=== PATIENT | male | born 1970 | race Caucasian/White ===

== ENCOUNTER 2020-04-19 11:58 | Observation (INO) | payer OTHER, SELFPAY ==
[2020-04-19] VITALS (19 sets, daily range): BP systolic 138–195; BP diastolic 96–132; PULSE 56–88; RESP 16–18; TEMP 36.6–36.9; O2SAT 96–100; BMI 27.1
--- NOTE | 2020-04-19 12:08 | XR_ITS ---
WS: [id number] Portable AP upright chest, 04/19/2020 Clinical Data: chest pain, SOB Comparison: None. Findings: No nodules, masses or effusions are seen. The heart is slightly enlarged. The pulmonary vas cularity is not increased. No pneumonia or pneumothorax is seen. Monitor leads are on the chest wall. XR/XR chest 1V portable [id number] Impression: Cardiomegaly.
--- NOTE | 2020-04-19 12:08 | ECG_ITS ---
Measurements Intervals [place] Rate: 87 P: 17 TX: 138 QRS: 16 QRSD: 82 T: 37 QT: 384 QTc: 462 SINUS RHYTHM No previous ECG available for comparison Electronically Signed On 04-19-2020 20:55:46 CDT by Denisse Asencio M.D. [id number]
[2020-04-19 13:41] LABS: Basophils % 0.4 %; Eosinophils % 0.4 %; Hemoglobin 15.6 g/dL (11.7-16.6); Lymphocytes # 2.6 10^3/uL (0.8-4.8); Lymphocytes % 24.6 %; Mean Corpuscular HGB Conc 33.2 g/dL (30.0-36.0); Mean Corpuscular Hemoglobin 28.7 pg (28.0-34.0); Mean Corpuscular Volume 86.4 fL (80-94); Mean Platelet Volume 10.7 fL (7.4-10.4); Monocytes # 0.6 10^3/uL (0.2-0.9); Monocytes % 5.8 %; Neutrophils # 7.4 10^3/uL (1.8-7.7); Neutrophils % 68.6 %; Nucleated Red Blood Cells % 0 %; Platelet Count 229 10^3/cmm (130-400); Red Blood Count 5.44 10^6/uL (4.1-5.3); Red Cell Distribution Width 12.3 % (12.1-15.1); White Blood Count 10.7 10^3/uL (4.0-10.0)
--- NOTE | 2020-04-19 13:49 | W.ED.CHESTPA ---
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 He is not on any antiepileptic medications. He started having some retrosternal chest pain last night that got worse this morning. He then went to the clinic where he was given 324 mg of ASA and nitro. An ambulance was then called. While in the ambulance he had a generalized tonic clonic seizure that was aborted with versed 5 mg. CHest pain radiates to his left arm. No nausea or vomiting, no diaphoresis, no dizziness. Patient usually has an aura before his seizures Patient denies drug use, denies smoking or drinking. MD complaint: chest pain Onset (ago): day(s) (1) Associated symptoms: Deny abdominal pain, dyspnea, fever(s), nausea, palpitations or vomiting Review of Systems General: Reports: 10 or more systems reviewed and unremarkable except in HPI and below Const: Denies: fever(s), chills or body aches Eyes: Denies: change in vision or blurry vision ENMT: Denies: throat pain, enlarged tonsils, odynophagia, hoarseness, mouth pain or swelling of lips/tongue Card: Reports: chest pain and dyspnea on exertion; Denies: palpitations, irregular heart rhythm, edema or swelling of feet/ankles Resp: Denies: dyspnea, productive cough or non-productive cough GI: Denies: abdominal pain, nausea or vomiting : Denies: flank pain, dysuria, urinary frequency, urinary urgency or urinary hesitancy Musc: Denies: neck pain, back pain or extremity swelling Skin/Breast: Denies: rash, pruritus or erythema Neuro: Reports: seizure-like activity; Denies: headache(s), numbness in extremities or weakness in extremities Endo: Denies: polyuria, polydipsia or tired all the time PFS ED PFSH: Medical History (Updated 04/19/20 @ 21:15 by [place] [facility] [place] HTN (hypertension) Surgical History (Updated 04/19/20 @ 18:22 by Brandy Marcus MD) No history of previous surgery Family History (Updated 04/19/20 @ 18:23 by Brandy Marcus MD) Denies family history of Seizure disorder Social History (Updated 04/19/20 @ 18:23 by Brandy Marcus MD) Smoking and tobacco status: never smoked Alcohol intake: never Substance/Drug Use: never Household members: significant other and children Marital status: Current occupation: manual laborer wrecking and salvaging Physical Exam Const: COMMON NORMALS: no acute distress, average body habitus, patient oriented x3, no limitations, healthy appearing, alert and well nourished HENMT: COMMON NORMALS: normocephalic, atraumatic and moist oral mucous membranes HEAD & SCALP: normocephalic and atraumatic Eye: COMMON NORMALS: Equal, round and reactive pupils present, EOMs intact bilaterally, conjunctivae normal and no scleral icterus CONJUNCTIVA: Yes conjunctivae normal PUPIL: Yes Equal, round and reactive pupils present Neck/C-Spine: COMMON NORMALS: full ROM, supple, no meningeal signs, no JVD and No carotid bruits Chest: COMMONS NORMALS: normal inspection of the chest and normal palpation of entire chest wall Resp: COMMON NORMALS: normal respiratory effort, No retractions, No use of accessory muscles, clear to auscultation bilaterally and percussion normal AUSCULTATION: clear to auscultation bilaterally PERCUSSION: percussion normal Cardio: COMMON NORMALS: no JVD, regular rate, regular rhythm, S1 normal heart sound present, S2 normal heart sound present, No gallops present (Cardio), No clicks present (Cardio), No murmurs present (Cardio), No rub (Cardio) and Peripheral pulses 2+ throughout RATE: regular rate RHYTHM: regular rhythm HEART SOUNDS: S1 normal heart sound present and S2 normal heart sound present PERIPHERAL PULSES: Peripheral pulses 2+ throughout GI: COMMON NORMALS: Normal to inspection, nondistended, normoactive bowel sounds present, Soft to palpation, non-tender, No hepatosplenomegaly present, no masses and no bruits PALPATION: Yes Soft to palpation and Yes No hepatosplenomegaly present : COMMON NORMALS: Yes no CVA tenderness BLADDER/KIDNEY EXAM: Yes no CVA tenderness Back/Pelvis: COMMON NORMALS: no CVA tenderness Extremity: COMMON NORMALS: normal to inspection, full ROM, capillary refill normal, no calf tenderness and no pedal edema Neuro: COMMON NORMALS: patient oriented x3 SENSORIUM/ORIENTATION: Yes alert MENINGEAL SIGNS: Yes no meningeal signs Skin: COMMON NORMALS: no rashes or lesions noted, no wounds, turgor normal, no jaundice, no petechiae and no mottling GENERAL SKIN EXAM: no rashes or lesions noted and turgor normal Course ED course: During his emergency department stay, I discussed with his who came in to see him. She explained to me that the patient stopped taking his antiepileptic because he could not afford the medication. She also states that he is hypertensive but refuses to take medication. She also states that they are going through a lot of social issues between them and their marriage is not in a good place, she thinks the stress of that may be contributing to why he had seizures. Reevaluation(s): Reevaluation #1: Patient had a tonic-clonic seizure that started on the right side and became secondarily generalized. Witnessed by nursing staff as well as 1 of the hospitalists who happened to be in the ED at the time. I was in a different patient's room at the time. Seizure lasted about 1 minute and spontaneously aborted. Time: 12:55 Consultations: Consultation #1: Discussed the patient with Dr. Couch, neurologist. Since the patient has been given 1 g of intravenous Keppra and evaluation is unremarkable she does not think the patient needs further work-up. However since the patient is still lethargic and possibly postictal it is reasonable to admit the patient overnight under the hospitalist service for observation. Patient should be discharged home on 750 mg twice daily of oral Keppra Time: 16:30 Consultation #2: Discussed the patient with Dr. Hannah chiu, hospitalist. She kindly accepted the patient to her service Time: 16:40 Vital Signs: Vital signs: Vital Signs Temperature 97.8 F 04/19/20 20:00 Pulse Rate 56 L 04/19/20 20:00 Respiratory Rate 17 04/19/20 20:00 Blood Pressure 170/96 04/19/20 20:00 Pulse Oximetry 96 04/19/20 20:00 MDM - Chest Pain MDM Narrative: Medical decision making narrative: 50-year-old male with a history of posttraumatic seizures who presented to his primary care provider's office for complaints of chest pain. He had a couple of seizures today and was given a loading dose of intravenous Keppra. After that he did not have any other seizures. He remained postictal for the stay in the emergency department and he was therefore admitted for an overnight stay for observation. Evaluation in the emergency department was unremarkable. Medical Records: Attestation: I reviewed the patient's medical records. Lab Data: Attestation: I reviewed the patient's lab results. Labs: Lab Results 04/19/20 04/19/20 04/19/20 Range/Units 13:34 13:34 13:34 WBC 10.7 H (4.0-10.0) 10^3/ uL RBC 5.44 H (4.1-5.3) 10^6/u L Hgb 15.6 (11.7-16.6) g/dL Hct 47.0 (42.0-52.0) % MCV 86.4 (80-94) fL MCH 28.7 (28.0-34.0) pg MCHC 33.2 (30.0-36.0) g/dL RDW 12.3 (12.1-15.1) % Plt Count 229 (130-400) 10^3/c mm MPV 10.7 H (7.4-10.4) fL Neut % (Auto) 68.6 % Lymph % (Auto) 24.6 % [place] % (Auto) 5.8 % Eos % (Auto) 0.4 % Baso % (Auto) 0.4 % Neut # (Auto) 7.4 (1.8-7.7) 10^3/u L Lymph # (Auto) 2.6 (0.8-4.8) 10^3/u L [place] # (Auto) 0.6 (0.2-0.9) 10^3/u L Eos # (Auto) 0.0 (0.0-0.8) 10^3/u L Baso # (Auto) 0.0 (0.0-0.1) 10^3/u L Nucleated RBC % (a uto) 0 % Nucleated RBCs # 0.0 /100WBC D-Dimer <= 0.27 (0-0.59) ug/mIFE U Sodium 140 (136-145) mmol/L Potassium 4.0 (3.5-5.1) mmol/L Chloride 105 (98-107) mmol/L Carbon Dioxide 23 (22-29) mmol/L Anion Gap 16.0 (5-19) BUN 13 (6-20) mg/dL Creatinine 1.4 H (0.7-1.2) mg/dL GFR Calculation 53.4 L (90-130) mL/min Glucose 99 (65-115) mg/dL Calculated Osmolal ity 286 (285-295) mOsm/k g Calcium 8.6 (8.5-10.5) mg/dL Total Bilirubin 0.3 (0.15-1.2) mg/dL AST 15 (0-40) U/L ALT 18 (0-41) U/L Alkaline Phosphata se 101 (40-130) IU/L Troponin T Baselin e (0-15) ng/L Troponin T 120 Min [place] (0-15) ng/L Delta Troponin T (0-10) ABS# Total Protein 6.4 L (6.6-8.7) g/dL Albumin 4.0 (3.5-5.2) g/dL Globulin 2.4 (1.3-4.6) g/dL Urine Color (Yellow) Urine Appearance (CLEAR) Urine pH (5-7) Ur Specific Gravit y (1.005-1.030) Urine Protein (Negative) Urine Glucose (UA) (Normal) Urine Ketones (Negative) Urine Blood (Negative) Urine Nitrate (Negative) Urine Bilirubin (NEGATIVE) Urine Urobilinogen (Negative) mg/dL Ur Leukocyte Danielle ase (Negative) Urine RBC (0-2) /hpf Urine WBC (0-5) /hpf Ur Squamous Epith Cells (0-5) Urine Bacteria (NONE) Urine Mucus Urine Opiates Scre en (Negative) ng/mL Ur Barbiturates Sc reen (Negative) ng/mL Ur Phencyclidine S crn (Negative) ng/mL Ur Amphetamines Sc reen (Negative) ng/mL U Benzodiazepines Scrn (Negative) ng/mL Urine Cocaine Scre en (Negative) ng/mL U Marijuana (THC) Screen (Negative) ng/mL Ethyl Alcohol < 10 (0-10) mg/dL 04/19/20 04/19/20 04/19/20 Range/Units 13:34 15:47 16:00 WBC (4.0-10.0) 10^3/ uL RBC (4.1-5.3) 10^6/u L Hgb (11.7-16.6) g/dL Hct (42.0-52.0) % MCV (80-94) fL MCH (28.0-34.0) pg MCHC (30.0-36.0) g/dL RDW (12.1-15.1) % Plt Count (130-400) 10^3/c mm MPV (7.4-10.4) fL Neut % (Auto) % Lymph % (Auto) % [place] % (Auto) % Eos % (Auto) % Baso % (Auto) % Neut # (Auto) (1.8-7.7) 10^3/u L Lymph # (Auto) (0.8-4.8) 10^3/u L [place] # (Auto) (0.2-0.9) 10^3/u L Eos # (Auto) (0.0-0.8) 10^3/u L Baso # (Auto) (0.0-0.1) 10^3/u L Nucleated RBC % (a uto) % Nucleated RBCs # /100WBC D-Dimer (0-0.59) ug/mIFE U Sodium (136-145) mmol/L Potassium (3.5-5.1) mmol/L Chloride (98-107) mmol/L Carbon Dioxide (22-29) mmol/L Anion Gap (5-19) BUN (6-20) mg/dL Creatinine (0.7-1.2) mg/dL GFR Calculation (90-130) mL/min Glucose (65-115) mg/dL Calculated Osmolal ity (285-295) mOsm/k g Calcium (8.5-10.5) mg/dL Total Bilirubin (0.15-1.2) mg/dL AST (0-40) U/L ALT (0-41) U/L Alkaline Phosphata se (40-130) IU/L Troponin T Baselin e 12 (0-15) ng/L Troponin T 120 Min [place] 11.19 (0-15) ng/L Delta Troponin T -0.81 L (0-10) ABS# Total Protein (6.6-8.7) g/dL Albumin (3.5-5.2) g/dL Globulin (1.3-4.6) g/dL Urine Color Yellow (Yellow) Urine Appearance Clear (CLEAR) Urine pH 5 (5-7) Ur Specific Gravit y 1.020 (1.005-1.030) Urine Protein Neg (Negative) Urine Glucose (UA) Norm (Normal) Urine Ketones Negative (Negative) Urine Blood 2+ H (Negative) Urine Nitrate Negative (Negative) Urine Bilirubin Neg (NEGATIVE) Urine Urobilinogen Neg (Negative) mg/dL Ur Leukocyte Danielle ase Negative (Negative) Urine RBC 5-10 H (0-2) /hpf Urine WBC None (0-5) /hpf Ur Squamous Epith Cells None (0-5) Urine Bacteria Trace (NONE) Urine Mucus 2+ Urine Opiates Scre en (Negative) ng/mL Ur Barbiturates Sc reen (Negative) ng/mL Ur Phencyclidine S crn (Negative) ng/mL Ur Amphetamines Sc reen (Negative) ng/mL U Benzodiazepines Scrn (Negative) ng/mL Urine Cocaine Scre en (Negative) ng/mL U Marijuana (THC) Screen (Negative) ng/mL Ethyl Alcohol (0-10) mg/dL 04/19/20 Range/Units 16:00 WBC (4.0-10.0) 10^3/ uL RBC (4.1-5.3) 10^6/u L Hgb (11.7-16.6) g/dL Hct (42.0-52.0) % MCV (80-94) fL MCH (28.0-34.0) pg MCHC (30.0-36.0) g/dL RDW (12.1-15.1) % Plt Count (130-400) 10^3/c mm MPV (7.4-10.4) fL Neut % (Auto) % Lymph % (Auto) % [place] % (Auto) % Eos % (Auto) % Baso % (Auto) % Neut # (Auto) (1.8-7.7) 10^3/u L Lymph # (Auto) (0.8-4.8) 10^3/u L [place] # (Auto) (0.2-0.9) 10^3/u L Eos # (Auto) (0.0-0.8) 10^3/u L Baso # (Auto) (0.0-0.1) 10^3/u L Nucleated RBC % (a uto) % Nucleated RBCs # /100WBC D-Dimer (0-0.59) ug/mIFE U Sodium (136-145) mmol/L Potassium (3.5-5.1) mmol/L Chloride (98-107) mmol/L Carbon Dioxide (22-29) mmol/L Anion Gap (5-19) BUN (6-20) mg/dL Creatinine (0.7-1.2) mg/dL GFR Calculation (90-130) mL/min Glucose (65-115) mg/dL Calculated Osmolal ity (285-295) mOsm/k g Calcium (8.5-10.5) mg/dL Total Bilirubin (0.15-1.2) mg/dL AST (0-40) U/L ALT (0-41) U/L Alkaline Phosphata se (40-130) IU/L Troponin T Baselin e (0-15) ng/L Troponin T 120 Min [place] (0-15) ng/L Delta Troponin T (0-10) ABS# Total Protein (6.6-8.7) g/dL Albumin (3.5-5.2) g/dL Globulin (1.3-4.6) g/dL Urine Color (Yellow) Urine Appearance (CLEAR) Urine pH (5-7) Ur Specific Gravit y (1.005-1.030) Urine Protein (Negative) Urine Glucose (UA) (Normal) Urine Ketones (Negative) Urine Blood (Negative) Urine Nitrate (Negative) Urine Bilirubin (NEGATIVE) Urine Urobilinogen (Negative) mg/dL Ur Leukocyte Danielle ase (Negative) Urine RBC (0-2) /hpf Urine WBC (0-5) /hpf Ur Squamous Epith Cells (0-5) Urine Bacteria (NONE) Urine Mucus Urine Opiates Scre en Negative (Negative) ng/mL Ur Barbiturates Sc reen Negative (Negative) ng/mL Ur Phencyclidine S crn Negative (Negative) ng/mL Ur Amphetamines Sc reen Negative (Negative) ng/mL U Benzodiazepines Scrn Negative (Negative) ng/mL Urine Cocaine Scre en Negative (Negative) ng/mL U Marijuana (THC) Screen Negative (Negative) ng/mL Ethyl Alcohol (0-10) mg/dL Discharge Plan Discharge Patient Disposition: Placed in Observation Admit Provider: Brandy Marcus Clinical Impression: Seizure disorder, HTN (hypertension) Interventions: ED Discharge Assessment Last Done: 04/19/20 19:05 ED Charges Last Done: 04/19/20 19:05 Discharge Date/Time: 04/19/20 19:10 Coding Level of Care Code ED Automation Qa Lead for Alyssa Paulson
--- NOTE | 2020-04-19 13:53 | CT_ITS ---
WS: [id number] CT scan of the head, 04/19/2020 Clinical Data: multiple seizures Comparison: None. DLP: 913.[address] scans at [facility] use at least one of these dose optimization techniques: automat ed exposure control; mA and/or kV adjustment per patient size (includes targeted exams where dose is matched to clinical indication); or iterative reconstruction. Findings: The ventricular system is normal without shift. No recent infarct or hemorrhage is seen. There are no abnormal intracerebral masses. The cerebellum and brainstem are not remarkable. Bony windows of the skull and skull base show no fractures or erosions. The mastoid air cells, internet marketing executive al auditory canals, sella turcica, intraorbital contents, and paranasal sinuses are unremarkable. CT/CT head wo con* [id number] Impression: Negative CT scan of the head
[2020-04-19 13:57] LABS: Alanine Aminotransferase 18 U/L (0-41); Alkaline Phosphatase 101 IU/L (40-130); Aspartate Amino Transferase 15 U/L (0-40); Blood Urea Nitrogen 13 mg/dL (6-20); Calcium 8.6 mg/dL (8.5-10.5); Carbon Dioxide 23 mmol/L (22-29); Chloride 105 mmol/L (98-107); Globulin 2.4 g/dL (1.3-4.6); Glomerular Filtration Rate 53.4 mL/min (90-130); Glucose 99 mg/dL (65-115); Osmolality Calculated 286 mOsm/kg (285-295); Sodium 140 mmol/L (136-145); Total Bilirubin 0.3 mg/dL (0.15-1.2); Total Protein 6.4 g/dL (6.6-8.7); Troponin(5th) Baseline 12 ng/L (0-15)
--- NOTE | 2020-04-19 14:08 | ECG_ITS ---
Measurements Intervals [place] Rate: 73 P: 26 PA: 133 QRS: 22 QRSD: 85 T: 30 QT: 407 QTc: 450 SINUS RHYTHM No previous ECG available for comparison Electronically Signed On 04-19-2020 21:05:13 CDT by Denisse Asencio M.D. [email or web address]
[2020-04-19 14:16] LABS: Alcohol Level < 10 mg/dL (0-10)
[2020-04-19 14:55] LABS: D Dimer <= 0.27 ug/mIFEU (0-0.59)
[2020-04-19 16:19] LABS: Troponin 5 2HR 11.19 ng/L (0-15)
[2020-04-19 16:30] LABS: Troponin 5 2HR Delta -0.81 ABS# (0-10)
[2020-04-19 16:35] LABS: Amphetamines Screen Urine Negative (Negative); Barbiturates Screen Urine Negative (Negative); Benzodiazepines Screen Urine Negative (Negative); Cocaine Screen Urine Negative (Negative); Opiate Screen Urine Negative (Negative); PCP Screen Urine Negative (Negative); THC Screen Urine Negative (Negative)
[2020-04-19 16:40] LABS: Protein Urine Neg (Negative); Urine Appearance Clear (CLEAR); Urine Color Yellow (Yellow); pH Urine 5 (5-7)
[2020-04-19 16:41] LABS: Add Urine Culture? No; Add Urine Microscopic? YES; Bacteria Urine TRACE; Bilirubin Urine Neg (NEGATIVE); Blood Urine 2+ (Negative); Glucose Urine UA Norm (Normal); Ketones Urine Negative (Negative); Leukocyte Esterase Urine Negative (Negative); Mucus Urine 2+; Nitrate Urine Negative (Negative); Urobilinogen Urine Neg (Negative)
--- NOTE | 2020-04-19 18:08 | ECG_ITS ---
Measurements Intervals [place] Rate: 70 P: 20 TX: 138 QRS: 9 QRSD: 86 T: 25 QT: 416 QTc: 449 SINUS RHYTHM WITH SINUS ARRHYTHMIA No previous ECG available for comparison Electronically Signed On 04-19-2020 21:02:35 CDT by Denisse Asencio M.D. [email or web address]
--- NOTE | 2020-04-19 18:12 | PM.HP ---
Providers/Chief Complaint Admitting Physician: Brandy Marcus MD Primary Care Provider: None Chief Complaint: chest pain History of Present Illness Sanjay Riley is a 50 year old male with PMHx of HTN, Seizure disorder (no longer on meds), presents to the ER with complaints of substernal chest pain with associated mild shortness of breath, diaphoresis that started earlier this afternoon. 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 He denies having had similar episodes in the past. En route to the hospital he was noted to have a seizure-like episode for which he received a dose of Versed. While in the ER he had another seizure episode which I personally witnessed as I was walking to the room next door when it occurred. Patient was noted to have intermittent jerking movements of the right upper and right lower extremities, eyes noted to roll back into his head, episode lasted about 30 to 45 seconds, no noted incontinence or tongue biting. Patient was not verbally responsive during the episode and was post-ictal thereafter. He received a dose of Ativan and 1 gram of Keppra IV. Matos catheter was placed due to patient having been unable to void and aforementioned seizure-like episode. Further work-up was pursued including CT of the head which is unremarkable, chest x-ray which shows cardiomegaly, mild leukocytosis with a white count of 10.7, creatinine of 1.4 with otherwise normal chemistry, 2 troponins with no significant delta, EKG showing normal sinus rhythm. Urinalysis which was a cath sample shows some hematuria but is otherwise benign. Urine drug screen and alcohol screen are both negative. He was tachycardic and has been hypertensive during my initial bedside assessment then following need for hospitalization reassessed and patient is now awake though lethargic with at bedside. He is still hypertensive though vital signs are otherwise within normal limits and he is now on room air. ER physician contacted Dr. Couch who recommended continuation of Keppra 750 twice daily. Patient does not remember all the details of what has transpired since he has been in the hospital but he is oriented to place, able to give his name correctly, recognizes and is able to converse with his at bedside. His affect is quite flat and when asked about depression he admits that he has been feeling depressed lately and per his at bedside they have not been on good terms so there is been a lot of personal stress at home. Also by his he has had prior seizure-like episodes triggered by anxiety. He is requesting removal of the Matos catheter as it is quite uncomfortable. Discussed need for at least overnight observation due to postictal state and to monitor for further seizure-like activity. Of note, patient did receive aspirin on his way to the hospital secondary to his chief complaint of chest pain. This has since resolved. Review of Systems Const: Reports: change in appetite (decreased appetite) and fatigue; Denies: fever(s) or chills Eyes: Denies: change in vision ENMT: Reports: dry mouth Card: Reports: chest pain (earlier today, now resolved); Denies: swelling of feet/ankles or lightheadedness Resp: Denies: dyspnea, productive cough or non-productive cough GI: Denies: abdominal pain, nausea, vomiting, hematemesis, change in bowel habits or hematochezia : Denies: difficulty urinating, dysuria or urinary frequency Musc: Denies: back pain Skin/Breast: Denies: rash Neuro: Reports: seizure-like activity (including witnessed episode in ED); Denies: numbness in extremities or weakness in extremities Psych: Reports: depression and other (increased personal stress); Denies: anxiety Medications/Allergies Home Medications Medication Instructions Recorded Confirmed Last Taken Type aspirin See Rx Instructions .ROUTE .COMPLEX 04/19/20 04/19/20 04/19/20 History ibuprofen [Motrin IB] 400 mg PO PRN 04/19/20 04/19/20 04/19/20 History Allergies Allergy/AdvReac Type Severity Reaction Status Date / Time No Known Allergies Allergy Verified 04/19/20 12:11 PFSH Acute PFSH: Medical History (Updated 04/19/20 @ 18:36 by Brandy Marcus MD) HTN (hypertension) Surgical History (Updated 04/19/20 @ 18:22 by Brandy Marcus MD) No history of previous surgery Family History (Updated 04/19/20 @ 18:23 by Brandy Marcus MD) Denies family history of Seizure disorder Social History (Updated 04/19/20 @ 18:23 by Brandy Marcus MD) Smoking and tobacco status: never smoked Alcohol intake: never Substance/Drug Use: never Household members: significant other and children Marital status: Current occupation: manual landscaping and groundskeeping laborer Vitals/I&O/Wt Last Vital Signs Temp 98.5 F 04/19/20 12:00 Pulse 74 04/19/20 17:00 Resp 18 04/19/20 17:00 BP 173/109 04/19/20 17:00 Pulse Ox 97 04/19/20 17:00 Weight last 48 hrs Weight 88.451 kg Physical Exam Const: COMMON NORMALS: no acute distress and patient oriented x3 GENERAL APPEARANCE: cooperative and comfortable ORIENTATION/CONSCIOUSNESS: Yes awake and Yes lethargic HENMT: COMMON NORMALS: normocephalic, atraumatic and hearing grossly normal bilaterally HEAD & SCALP: normocephalic and atraumatic MOUTH: moist mucous membranes abnormal Details: parched Eye: COMMON NORMALS: Equal, round and reactive pupils present, EOMs intact bilaterally and conjunctivae normal CONJUNCTIVA: Yes conjunctivae normal PUPIL: Yes Equal, round and reactive pupils present Neck/C-Spine: COMMON NORMALS: full ROM GENERAL: Yes normal visual inspection and Yes trachea midline Chest: COMMONS NORMALS: normal palpation of entire chest wall CHEST: Yes Symmetrical chest wall rise Resp: COMMON NORMALS: normal respiratory effort, No retractions, No use of accessory muscles and clear to auscultation bilaterally EFFORT & INSPECTION: Yes able to speak in complete sentences, Yes symmetric chest movement and No tachypneic AUSCULTATION: clear to auscultation bilaterally OTHER: -on RA Cardio: COMMON NORMALS: regular rate, regular rhythm, S1 normal heart sound present, S2 normal heart sound present and No murmurs present (Cardio) RATE: regular rate RHYTHM: regular rhythm HEART SOUNDS: S1 normal heart sound present and S2 normal heart sound present GI: COMMON NORMALS: Normal to inspection, nondistended, normoactive bowel sounds present, Soft to palpation and non-tender INSPECTION: Yes central obesity PALPATION: Yes Soft to palpation : BLADDER/KIDNEY EXAM: Yes catheter in place Catheter type (Male): urethral Extremity: COMMON NORMALS: normal to inspection, full ROM, no clubbing, cyanosis or edema and no pedal edema Neuro: COMMON NORMALS: patient oriented x3, moves all extremities, no focal motor deficits and no sensory deficits noted SENSORIUM/ORIENTATION: Yes lethargic OTHER: -witnessed seizure-like episode in ED: intermittent jerking movements of RUE, RLE, eyes rolled into the back of the head, no tongue biting or incontinence, not verbally responsive, lasted about 30-45 sec, self-resolved, post-ictal thereafter. Psych: COMMON NORMALS: mental status grossly normal, Normal thought process present, cooperative and speech normal SPEECH: Yes normal speech MOOD & AFFECT: Yes Flat affect present THOUGHT PROCESS: Normal thought process present Skin: COMMON NORMALS: no rashes or lesions noted, no jaundice, no petechiae and no mottling GENERAL SKIN EXAM: no rashes or lesions noted Urinary Catheter Management^: Matos: Cath Placed During This Visit: yes Urethral Indwelling: Yes Reason for Continuing Indwelling Catheter: Acute Urinary Retention or Obstruction Urinary Catheter Date of Insertion: 04/19/20 Urinary Catheter Time of Insertion: 16:08 Data : 04/19/20 13:34 04/19/20 13:34 A&P Assessment and plan (1) Seizure: -presented following seizure-like episode in ambulance, stopped after receiving dose of Versed. Had another witnesssed seizure (this provider present at bedside) in ED, received Ativan and 1g of Keppra -ED physician spoke with Dr. Couch who recommended continuation of Keppra -patient has been on Keppra in the past for seizure disorder but discontinued this due to cost issues -likely triggered by increased personal stress -no indication of infection -CT head unremarkable -UDS, EtOH screen negative -post-ictal currently, neurochecks, fall/aspiration/seizure precautions -Matos catheter placed in ED following seizure episode; patient now requests removal -UA shows some hematuria likely due to cath placement Status: Acute (2) Chest pain: -initially presented with c/o substernal chest pain, radiating to the back, with some mild SOB, diaphoresis; now resolved -troponins x 2, no significant delta -no events on telemetry; ECG-NSR -received ASA -would not pursue further workup at this time Status: Resolved Qualifiers: Chest pain type: unspecified Qualified Code(s): R07.9 - Chest pain, unspecified (3) HTN (hypertension): -untreated -hypertensive likely secondary to seizure -monitor vital signs -start on low dose Amlodipine, hydralazine PRN Status: Chronic Qualifiers: Hypertension type: essential hypertension Qualified Code(s): I10 - Essential (primary) hypertension (4) LELAND (acute kidney injury): -noted acute renal impairment, no baseline labs for comparison -gentle IVF hydration -repeat labs in AM Status: Acute Additional A&P Information -low risk for DVT so no need for ppx -regular diet as tolerated -Dispo: home -Code status: FULL code Attestations Medical Necessity Statement*: Sanjay Riley's hospital stay will be less than 2 midnights for management of witnessed seizure with post-ictal state pending improved mental status. Time Spent in Patient Care: Greater than 35 minutes (>than 50% of time spent in counselling and/or direct pt care on unit). Coding Level of Care Code Acute Outbound Sales Consultant for Chg Fwd Diagnoses Seizure R56.9 Chest pain R07.9 Chest pain type: unspecified HTN (hypertension) I10 Hypertension type: essential hypertension LELAND (acute kidney injury) N17.9
[2020-04-19] MEDS: metoprolol tartrate 1 mg/1 mL SDV 5 mL 5 MG IV (18:24)
[2020-04-19 19:56] LABS: Troponin 5 6HR 10.41 ng/L (0-15)
[2020-04-19 20:05] LABS: Troponin 5 6HR Delta -1.59 ng/L (0-12)
[2020-04-19] MEDS: sodium chloride 0.45% 1,000 ML 75 ML IV (23:57)
[2020-04-19] MEDS: amlodipine 5 mg Tablet PO (23:58)
[2020-04-20] VITALS: BP 143/89; PULSE 63; RESP 15; TEMP 36.5; O2SAT 94
[2020-04-20 04:00] VITALS: BP 123/79; PULSE 68; RESP 17; TEMP 36.3; O2SAT 96
[2020-04-20 05:15] LABS: Basophils % 0.5 %; Eosinophils # 0.1 10^3/uL (0.0-0.8); Eosinophils % 0.8 %; Hematocrit 47.1 % (42.0-52.0); Hemoglobin 15.6 g/dL (11.7-16.6); Lymphocytes # 2.2 10^3/uL (0.8-4.8); Lymphocytes % 34.2 %; Mean Corpuscular HGB Conc 33.1 g/dL (30.0-36.0); Mean Corpuscular Hemoglobin 28.8 pg (28.0-34.0); Mean Corpuscular Volume 87.1 fL (80-94); Mean Platelet Volume 11.2 fL (7.4-10.4); Monocytes # 0.5 10^3/uL (0.2-0.9); Monocytes % 7.7 %; Neutrophils # 3.7 10^3/uL (1.8-7.7); Neutrophils % 56.6 %; Nucleated Red Blood Cells % 0 %; Platelet Count 201 10^3/cmm (130-400); Red Blood Count 5.41 10^6/uL (4.1-5.3); Red Cell Distribution Width 12.4 % (12.1-15.1); White Blood Count 6.5 10^3/uL (4.0-10.0)
[2020-04-20 05:42] LABS: Anion Gap 12.2 (5-19); Blood Urea Nitrogen 14 mg/dL (6-20); Calcium 9.2 mg/dL (8.5-10.5); Carbon Dioxide 25 mmol/L (22-29); Chloride 108 mmol/L (98-107); Glomerular Filtration Rate 53.4 mL/min (90-130); Glucose 83 mg/dL (65-115); Osmolality Calculated 287 mOsm/kg (285-295); Potassium 4.2 mmol/L (3.5-5.1); Sodium 141 mmol/L (136-145)
[2020-04-20 08:00] VITALS: BP 150/98; PULSE 92; RESP 18; TEMP 36.8; O2SAT 94
[2020-04-20] MEDS: amlodipine 5 mg Tablet PO (08:16)
[2020-04-20] MEDS: levETIRAcetam 500 mg Tablet 750 MG PO (08:16)
--- NOTE | 2020-04-20 08:25 | P.DS_ITS ---
Discharge Providers Date of Admission: 04/19/20 17:20 Date of Discharge: April 20, 2020 Attending Provider at Admission: Brandy Marcus MD Attending Provider at Discharge: Brandy Marcus MD Primary Care Provider: DOCTOR NOT ON FILE Diagnoses at Discharge Discharge Diagnosis (1) Seizure: Status: Acute Problem details: -presented following seizure-like episode in ambulance, stopped after receiving dose of Versed. Had another witnesssed seizure (this provider present at bedside) in ED, received Ativan and 1g of Keppra -ED physician spoke with Dr. Couch who recommended continuation of Keppra -patient has been on Keppra in the past for seizure disorder but discontinued this due to cost issues -likely triggered by increased personal stress -no indication of infection -CT head unremarkable -UDS, EtOH screen negative -post-ictal following seizure, now returned to baseline, neurochecks, fall/aspiration/seizure precautions -Matos catheter placed in ED following seizure episode; removed and patient able to void independently -UA shows some hematuria likely due to cath placement (2) Chest pain: Status: Resolved Problem details: -initially presented with c/o substernal chest pain, radiating to the back, with some mild SOB, diaphoresis; now resolved -troponins x 2, no significant delta -no events on telemetry; ECG-NSR -received ASA -would not pursue further workup at this time Qualifiers: Chest pain type: unspecified Qualified Code(s): R07.9 - Chest pain, unspecified (3) HTN (hypertension): Status: Chronic Problem details: -untreated -hypertensive likely secondary to seizure -VSS -on low dose Amlodipine, hydralazine PRN Qualifiers: Hypertension type: essential hypertension Qualified Code(s): I10 - Essential (primary) hypertension (4) LELAND (acute kidney injury): Status: Acute Problem details: -noted acute renal impairment, no baseline labs for comparison -gentle IVF hydration -repeat labs in AM unchanged Reason for Visit Reason for Visit: chest pain Hospital Course Hospital Course: Patient was admitted to the medical surgical floor secondary to having had 2 seizure episodes 1 of which was witnessed in the ER. He received Versed on route to the hospital and during the witnessed seizure episode in the ER received Ativan and 1 g of [address]ra. Per Dr. Couch's recommendations patient was continued on 750 mg twice daily. No noted seizure- like activity overnight, has been afebrile and maintained on room air. He was noted to be quite hypertensive in the ER and was started on amlodipine which will be continued on discharge for continued blood pressure control. Creatinine was noted to be 1.4, unclear baseline so he received some IV fluid hydration. Repeat labs this a.m. are unchanged, patient has been able to void following removal of Matos catheter. He will be referred to neurology for further follow- up. Chest pain rule out ACS work-up was unremarkable and he has had no recurrence of his symptoms during his hospital stay. He was initially postictal following seizure episode, mental status has returned to baseline. Discharge Summary: -Patient to follow-up with primary care provider once care is established -Patient to follow-up with Dr. Couch Physical Exam Const: COMMON NORMALS: no acute distress, patient oriented x3 and alert GENERAL APPEARANCE: cooperative and comfortable ORIENTATION/CONSCIOUSNESS: Yes awake HENMT: COMMON NORMALS: normocephalic, atraumatic and hearing grossly normal bilaterally HEAD & SCALP: normocephalic and atraumatic MOUTH: moist mucous membranes abnormal Details: parched Eye: COMMON NORMALS: Equal, round and reactive pupils present, EOMs intact bilaterally and conjunctivae normal CONJUNCTIVA: Yes conjunctivae normal PUPIL: Yes Equal, round and reactive pupils present Neck/C-Spine: COMMON NORMALS: full ROM GENERAL: Yes normal visual inspection and Yes trachea midline Chest: COMMONS NORMALS: normal palpation of entire chest wall CHEST: Yes S ymmetrical chest wall rise Resp: COMMON NORMALS: normal respiratory effort, No retractions, No use of accessory muscles and clear to auscultation bilaterally EFFORT & INSPECTION: Yes able to speak in complete sentences, Yes symmetric chest movement and No tachypneic AUSCULTATION: clear to auscultation bilaterally OTHER: -on RA Cardio: COMMON NORMALS: regular rate, regular rhythm, S1 normal heart sound present, S2 normal heart sound present and No murmurs present (Cardio) RATE: regular rate RHYTHM: regular rhythm HEART SOUNDS: S1 normal heart sound present and S2 normal heart sound present GI: COMMON NORMALS: Normal to inspection, nondistended, normoactive bowel sounds present, Soft to palpation and non-tender INSPECTION: Yes central obesity PALPATION: Yes Soft to palpation : BLADDER/KIDNEY EXAM: Yes catheter in place Extremity: COMMON NORMALS: normal to inspection, full ROM, no clubbing, cyanosis or edema and no pedal edema Neuro: COMMON NORMALS: patient oriented x3, moves all extremities, no focal motor deficits and no sensory deficits noted SENSORIUM/ORIENTATION: Yes alert Psych: COMMON NORMALS: mental status grossly normal, Normal thought process present, cooperative and speech normal SPEECH: Yes normal speech MOOD & AFFECT: Yes Flat affect present THOUGHT PROCESS: Normal thought process present Skin: COMMON NORMALS: no rashes or lesions noted, no jaundice, no petechiae and no mottling GENERAL SKIN EXAM: no rashes or lesions noted Urinary Catheter Management^: Matos: Cath Placed During This Visit: yes Urethral Indwelling: Yes Reason for Continuing Indwelling Catheter: Acute Urinary Retention or Obstruction Urinary Catheter Date of Insertion: 04/19/20 Urinary Catheter Time of Insertion: 16:08 Discharge Data Data Completed and Pending: Completed Studies During Hospitalization Category Date Time Status CT head wo con* [id number] Urgent Cat Scan 04/19/20 13:53 Completed XR chest 1V [place] ble [id number] Stat Exams 04/19/20 12:08 Completed Labs from last 24 hours 04/20/20 04/20/20 04/19/20 04:50 04:50 19:35 WBC 6.5 RBC 5.41 H Hgb 15.6 Hct 47.1 MCV 87.1 MCH 28.8 MCHC 33.1 RDW 12.4 Plt Count 201 MPV 11.2 H Neut % (Auto) 56.6 Lymph % (Auto) 34.2 Franklin % (Auto) 7.7 Eos % (Auto) 0.8 Baso % (Auto) 0.5 Neut # (Auto) 3.7 Lymph # (Auto) 2.2 Franklin # (Auto) 0.5 Eos # (Auto) 0.1 Baso # (Auto) 0.0 Nucleated RBC % (a uto) 0 Nucleated RBCs # 0.0 D-Dimer Sodium 141 Potassium 4.2 Chloride 108 H Carbon Dioxide 25 Anion Gap 12.2 BUN 14 Creatinine 1.4 H GFR Calculation 53.4 L Glucose 83 Calculated Osmolal ity 287 Calcium 9.2 Total Bilirubin AST ALT Alkaline Phosphata se Troponin I 6 Hour 10.41 Troponin I Hi Sens Del -1.59 L Troponin T Baselin e Troponin T 120 Min [place] Delta Troponin T Total Protein Albumin Globulin Urine Color Urine Appearance Urine pH Ur Specific Gravit y Urine Protein Urine Glucose (UA) Urine Ketones Urine Blood Urine Nitrate Urine Bilirubin Urine Urobilinogen Ur Leukocyte Danielle ase Urine RBC Urine WBC Ur Squamous Epith Cells Urine Bacteria Urine Mucus Urine Opiates Scre en Ur Barbiturates Sc reen Ur Phencyclidine S crn Ur Amphetamines Sc reen U Benzodiazepines Scrn Urine Cocaine Scre en U Marijuana (THC) Screen Ethyl Alcohol 04/19/20 04/19/20 04/19/20 16:00 16:00 15:47 WBC RBC Hgb Hct MCV MCH MCHC RDW Plt Count MPV Neut % (Auto) Lymph % (Auto) Franklin % (Auto) Eos % (Auto) Baso % (Auto) Neut # (Auto) Lymph # (Auto) Franklin # (Auto) Eos # (Auto) Baso # (Auto) Nucleated RBC % (a uto) Nucleated RBCs # D-Dimer Sodium Potassium Chloride Carbon Dioxide Anion Gap BUN Creatinine GFR Calculation Glucose Calculated Osmolal ity Calcium Total Bilirubin AST ALT Alkaline Phosphata se Troponin I 6 Hour Troponin I Hi Sens Del Troponin T Baselin e Troponin T 120 Min [place] 11.19 Delta Troponin T -0.81 L Total Protein Albumin Globulin Urine Color Yellow Urine Appearance Clear Urine pH 5 Ur Specific Gravit y 1.020 Urine Protein Neg Urine Glucose (UA) Norm Urine Ketones Negative Urine Blood 2+ H Urine Nitrate Negative Urine Bilirubin Neg Urine Urobilinogen Neg Ur Leukocyte Danielle ase Negative Urine RBC 5-10 H Urine WBC None Ur Squamous Epith Cells None Urine Bacteria Trace Urine Mucus 2+ Urine Opiates Scre en Negative Ur Barbiturates Sc reen Negative Ur Phencyclidine S crn Negative Ur Amphetamines Sc reen Negative U Benzodiazepines Scrn Negative Urine Cocaine Scre en Negative U Marijuana (THC) Screen Negative Ethyl Alcohol 04/19/20 04/19/20 04/19/20 13:34 13:34 13:34 WBC RBC Hgb Hct MCV MCH MCHC RDW Plt Count MPV Neut % (Auto) Lymph % (Auto) Franklin % (Auto) Eos % (Auto) Baso % (Auto) Neut # (Auto) Lymph # (Auto) Franklin # (Auto) Eos # (Auto) Baso # (Auto) Nucleated RBC % (a uto) Nucleated RBCs # D-Dimer <= 0.27 Sodium 140 Potassium 4.0 Chloride 105 Carbon Dioxide 23 Anion Gap 16.0 BUN 13 Creatinine 1.4 H GFR Calculation 53.4 L Glucose 99 Calculated Osmolal ity 286 Calcium 8.6 Total Bilirubin 0.3 AST 15 ALT 18 Alkaline Phosphata se 101 Troponin I 6 Hour Troponin I Hi Sens Del Troponin T Baselin e 12 Troponin T 120 Min [place] Delta Troponin T Total Protein 6.4 L Albumin 4.0 Globulin 2.4 Urine Color Urine Appearance Urine pH Ur Specific Gravit y Urine Protein Urine Glucose (UA) Urine Ketones Urine Blood Urine Nitrate Urine Bilirubin Urine Urobilinogen Ur Leukocyte Danielle ase Urine RBC Urine WBC Ur Squamous Epith Cells Urine Bacteria Urine Mucus Urine Opiates Scre en Ur Barbiturates Sc reen Ur Phencyclidine S crn Ur Amphetamines Sc reen U Benzodiazepines Scrn Urine Cocaine Scre en U Marijuana (THC) Screen Ethyl Alcohol < 10 04/19/20 13:34 WBC 10.7 H RBC 5.44 H Hgb 15.6 Hct 47.0 MCV 86.4 MCH 28.7 MCHC 33.2 RDW 12.3 Plt Count 229 MPV 10.7 H Neut % (Auto) 68.6 Lymph % (Auto) 24.6 Franklin % (Auto) 5.8 Eos % (Auto) 0.4 Baso % (Auto) 0.4 Neut # (Auto) 7.4 Lymph # (Auto) 2.6 [place] # (Auto) 0.6 Eos # (Auto) 0.0 Baso # (Auto) 0.0 Nucleated RBC % (a uto) 0 Nucleated RBCs # 0.0 D-Dimer Sodium Potassium Chloride Carbon Dioxide Anion Gap BUN Creatinine GFR Calculation Glucose Calculated Osmolal ity Calcium Total Bilirubin AST ALT Alkaline Phosphata se Troponin I 6 Hour Troponin I Hi Sens Del Troponin T Baselin e Troponin T 120 Min [place] Troponin T Total Protein Albumin Globulin Urine Color Urine Appearance Urine pH Ur Specific Gravit y Urine Protein Urine Glucose (UA) Urine Ketones Urine Blood Urine Nitrate Urine Bilirubin Urine Urobilinogen Ur Leukocyte Danielle ase Urine RBC Urine WBC Ur Squamous Epith Cells Urine Bacteria Urine Mucus Urine Opiates Scre en Ur Barbiturates Sc reen Ur Phencyclidine S crn Ur Amphetamines Sc reen U Benzodiazepines Scrn Urine Cocaine Scre en U Marijuana (THC) Screen Ethyl Alcohol Vitals: Last Vital Signs Temp 97.4 F L 04/20/20 04:00 Pulse 68 04/20/20 04:00 Resp 17 04/20/20 04:00 BP 123/79 04/20/20 04:00 Pulse Ox 96 04/20/20 04:00 Discharge Plan Discharge Patient Disposition: Home, Self-Care Condition: Stable Prescriptions: New levetiracetam 500 mg Tablet 750 mg PO BID 30 Days Qty: 90 RF: 0 amlodipine 5 mg Tablet 5 mg PO DAILY 30 Days Qty: 30 RF: 0 aspirin 81 mg tablet,delayed release (DR/EC) 81 mg PO DAILY 30 Days Qty: 30 RF: 0 Continued Motrin IB 200 mg Tablet 400 mg PO PRN RF: 0 Discontinued aspirin 325 mg Tablet See Rx Instructions .ROUTE .COMPLEX RF: 0 Discharge Orders: Discharge Order (Routine); Ordered 04/20/20 Ordered By: Brandy Marcus Referrals: Elis Couch MD [Physician] - 1 month (Seizure disorder) Calvin Medina MD [Hospitalist] - 4-7 days (Post hospital discharge follow up. ) Discharge Diet: Low Salt Discharge Activity: Increase activity as tolerated Activity Restrictions/Additional Instructions: -Please seek medical attention immediately if seizures recur -Please AVOID operating machinery or driving for safety reasons -Please DO NOT take medications with alcohol Discharge Attestations Time Spent in Discharge Care*: greater than 30 min Specific Discharge Activities: Specific discharge activities: educating patient, discussing with child welfare caseworker/social workers/dc planners, documenting/other paperwork and evaluating patient/reviewing data Status at Discharge: Cognitive status at discharge: cognitively intact , Behavioral status at discharge: cooperative , Functional status at discharge: independent ambulation Overall status at discharge: patient is back to baseline Quality Metrics Clinical Quality Measures During this hospital stay, did patient experience: None Coding Level of Care Code Acute Collar Worker for g Fwd Diagnoses Seizure R56.9 Chest pain R07.9 Chest pain type: unspecified HTN (hypertension) I10 Hypertension type: essential hypertension LELAND (acute kidney injury) N17.9
--- NOTE | 2020-04-20 09:35 | PC.CHAP ---
Pastoral Care Encounter/Spiritual Assessment Type of Contact [] Declined churn driller helper visit [] Patient/Family/Request visit [] Outpatient visit [] Follow-up visit [] Physician referral [] Code/Alert [x] Routine visit [] Staff referral [] Actively dying [] Patient sleeping [] Family support [] [] Out of room [] Palliative care [] [] Receiving care in room [] Pre-surgical visit [] Trauma [] Long length of stay [] ICU visit [] Other: Relational/Emotional Strength [] Patient feels connected with others/family/visitors/staff [] Distress [] Loneliness/isolation [] Abandonment Spirituality of Patient [] Person of Jazmín [] Attends Denominational of their Jazmín [] Believes in Prayer [] Reads Bible or Latter Day materials [] There are Spiritual issues to be addressed Branding Specialist Interventions [x] Prayer [] Active listening [] Non-anxious presence [] Spiritual/emotional support [] Crisis/trauma care [] Spiritual counseling [] Bereavement support [] Provided bereavement packet [] Provided Bible/devotional materials [] Provided toy/stuffed animal, coloring book to patient or family member [] Provided Communion [] Anointing/[place] [] Salvation [x] Completed spiritual assessment [] Other: Impact on Illness or Injury [] Angry [] Fearful [] Anxious [] Often cries [] Exhaustion [] Unable to work [] Unable to attend evangelical [] Unable to walk/stand [] Unable to read [] Unable to drive [] Unable to eat/drink [] Unable to sleep [] Unable to be with family [] Patient intubated [] Other: Summary Patient seems very concerned regarding this issues. Prayed for healing and clarity. Time spent with patient 15 min
[2020-04-20 12:00] VITALS: BP 137/87; PULSE 87; RESP 17; TEMP 36.9; O2SAT 95
[2020-04-20 15:04] VITALS: BP 137/87; PULSE 87; RESP 17; TEMP 36.9; O2SAT 95
== END 2020-04-20 15:00 | disposition home or self-care (01) ==
LOC: ER 14:43 → MEDSURG 17:36
PROVIDERS: Family Medicine; Admitting Provider Family Medicine; Visit Provider Family Medicine
DX: R56.9 Unspecified convulsions (principal); R07.9 Chest pain, unspecified; I10 Essential (primary) hypertension; N17.9 Acute kidney failure, unspecified; Z79.82 Long term (current) use of aspirin
CPT/HCPCS: 12345; 36415; 51702; 70450; 71045; 80048; 80053; 80306; 80307; 81001; 84484; 85025; 85378; 93005; 96361; 96374; 99284; 99285; G0378; J1953; J3490